=== PATIENT | female | born 1990 | race Caucasian/White ===

== ENCOUNTER → 2018-04-21 16:08 | Outpatient (CLI) | payer OTHER, MEDICAID, SELFPAY ==
[2018-04-21 18:14] LABS: Hematocrit 33.8 % (36-46); Hemoglobin 11.1 g/dL (12.0-16.0)
[2018-04-21 19:03] LABS: GTT (PREG) 1 Hour PP 50gm Dose 77 mg/dL (76-139)
== END ==
PROVIDERS: Visit Provider Obstetrics & Gynecology
DX: Z34.82 Encounter for supervision of other normal pregnancy, second trimester (principal); Z3A.26 26 weeks gestation of pregnancy
CPT/HCPCS: 82950; 85014; 85018

== ENCOUNTER → 2018-06-07 12:36 | Outpatient (CLI) | payer OTHER, MEDICAID, SELFPAY ==
[2018-06-08 14:32] LABS: Strep Grp B PCR NEG for Grp B Strep
== END ==
PROVIDERS: Visit Provider Obstetrics & Gynecology
DX: Z34.83 Encounter for supervision of other normal pregnancy, third trimester (principal)
CPT/HCPCS: 87653

== ENCOUNTER 2018-06-27 19:47 | Outpatient (CLI) | payer OTHER, MEDICAID, SELFPAY ==
[2018-06-27 21:31] LABS: RBC Urine None Seen (0-5/HPF)
[2018-06-27 21:32] LABS: Appearance Urine UA CLEAR; Bilirubin Urine UA NEGATIVE (NEGATIVE); Color Urine UA YELLOW; Glucose Urine UA NEGATIVE (Normal); Ketones Urine UA NEGATIVE (NEGATIVE); Leukocyte Esterase Urine UA 2+ (NEGATIVE); Nitrite Urine UA Negative (Negative); Occult Blood Urine UA NEGATIVE (Negative); Protein Urine UA NEGATIVE (Negative); Urobilinogen Urine UA 0.2 E.U./dL (0.2)
[2018-06-27 21:42] LABS: Bacteria Urine Few (2-10); Squamous Epithelial Cell Urine >30 /HPF; WBC Urine 1-5/HPF (0-5/HPF)
[2018-06-27 21:44] LABS: Culture Indicated Urine Cult Not Indicated
== END 2018-06-27 21:05 | disposition home or self-care (01) ==
LOC: OB 06-28 15:51
PROVIDERS: Visit Provider Family Medicine
DX: Z34.83 Encounter for supervision of other normal pregnancy, third trimester (principal); Z3A.38 38 weeks gestation of pregnancy; R10.9 Unspecified abdominal pain; M54.5 Low back pain
CPT/HCPCS: 59025; 81001; G0378; G0379

== ENCOUNTER 2018-07-04 11:42 | Outpatient (CLI) | payer OTHER, MEDICAID, SELFPAY ==
--- NOTE | 2018-07-07 12:01 | PM.OBTRLD ---
Visit Information Visit Information Date of evaluation: 07/04/18 Primary OB Provider: Lakia Montero Reason for Evaluation: Yes non-stress test non-stress test reason: decreased movement Evaluation Evaluation Baseline heart rate: 145 Variability: Moderate (11-25) monitor accelerations: Present monitor decelerations: Absent Category of Tracing: I
== END 2018-07-04 12:16 | disposition home or self-care (01) ==
LOC: OB 07-08 09:58
PROVIDERS: Visit Provider Obstetrics & Gynecology
DX: Z34.83 Encounter for supervision of other normal pregnancy, third trimester (principal); Z3A.39 39 weeks gestation of pregnancy
CPT/HCPCS: 59025; 84112; G0378; G0379

== ENCOUNTER 2018-07-10 13:27 | Observation (INO) | payer OTHER, MEDICAID, SELFPAY ==
--- NOTE | 2018-07-10 14:45 | PM.OBTRLD ---
Visit Information Visit Information Date of evaluation: 07/10/18 Primary OB Provider: Lakia Montero On-call OB Provider: Cassie Burnette Reason for Evaluation: Yes non-stress test non-stress test reason: other Comments/Additional reasons for admission: Patient concerned about passage of green mucus plug earlier today. No leaking of fluid, bleeding, fevers or painful contractions. + movement. Evaluation Evaluation Baseline heart rate: 130 Variability: Moderate (11-25) monitor accelerations: Present monitor decelerations: Absent Uterine Contraction Intensity: Mild Non-invasive Membranes Rupture Test: negative Diagnosis, Plan/Disposition Final Diagnosis (1) 40 weeks gestation of : Current Visit: Yes Status: Acute Plan/Disposition Plan: 27 year old at 40+3 weeks with passage of green mucus plug today. Reactive NST, SVE unchanged from last clinic check per RN, amnisure negative. Patient will follow up in clinic or return to center if needed.
== END 2018-07-10 14:05 | disposition home or self-care (01) ==
LOC: LABOR 13:31
PROVIDERS: Admitting Provider Family Medicine; Visit Provider Family Medicine
DX: Z34.83 Encounter for supervision of other normal pregnancy, third trimester (principal); Z3A.40 40 weeks gestation of pregnancy
CPT/HCPCS: 59025; 84112; G0378; G0379

== ENCOUNTER 2018-07-12 10:03 | Inpatient (IN) | payer OTHER, MEDICAID, SELFPAY ==
[2018-07-12] MEDS: LACTATED RINGERS 1,000 ML 100 ML IV (10:45)
[2018-07-12] MEDS: OXYTOCIN PREMIX 30 UNIT/500 ML PLAST..BAG IV (10:45)
[2018-07-12 11:00] LABS: Add Manual Diff / Slide Review NO; Basophils Percent Auto 0.6 % (0-2); Eosinophils Percent Auto 2.2 % (2-4); Hematocrit 31.4 % (36-46); Hemoglobin 10.4 g/dL (12.0-16.0); Lymphocytes Percent Auto 17.5 % (25-40); Mean Corpuscular HGB Conc 33.1 % (30-36); Mean Corpuscular Hemoglobin 28.3 PG (26-34); Mean Corpuscular Volume 85.6 fL (80-100); Neutrophils Absolute Auto 9600 /uL (3000-5900); Neutrophils Percent Auto 73.7 % (50-75); Platelet Count 224 X10^3/uL (150-400); Red Blood Cell Count 3.66 X10^6/uL (4.0-5.2); Red Cell Distribution Width 13.1 % (11.6-14.8)
[2018-07-12 11:12] VITALS: BP 124/76
[2018-07-12] MEDS: IBUPROFEN 600 MG TABLET PO (20:06)
[2018-07-13] MEDS: IBUPROFEN 600 MG TABLET PO ×2 (03:49→09:31)
[2018-07-13 05:26] LABS: Hematocrit 28.5 % (36-46); Hemoglobin 9.5 g/dL (12.0-16.0)
--- NOTE | 2018-07-13 07:58 | P.HPPD_ITS ---
History History weight: 7 lb 15 oz Exam - Pediatric Vital Signs BP 124/76 07/12/18 11:12 Objective Labs Result Diagrams: 07/13/18 05:07 Labs: Laboratory Results - last 24 hr 07/12/18 07/12/18 07/13/18 10:35 10:35 05:07 WBC 13.0 H RBC 3.66 L Hgb 10.4 L 9.5 L Hct 31.4 L 28.5 L MCV 85.6 MCH 28.3 MCHC 33.1 RDW 13.1 Plt Count 224 Neut % (Auto) 73.7 Lymph % (Auto) 17.5 L [place] % (Auto) 6.0 Eos % (Auto) 2.2 Baso % (Auto) 0.6 Neut # (Auto) 9600 H Blood Type A Positive Antibody Screen Negative
[2018-07-13] MEDS: DOCUSATE 250 MG CAPSULE PO (09:30)
[2018-07-13] MEDS: PRENATAL VIT,CALC/IRON/FOLIC 1 TABLET 1 TAB PO (09:31)
--- NOTE | 2018-08-04 16:23 | P.HPOB_ITS ---
OB HPI Date/Time Date of admission: 07/12/18 Date Patient Seen: 07/12/18 Time Patient Seen: 10:45 History of Present Condition Chief complaint: labor & delivery : 2 Para: 1 Estimated Date of Delivery: 07/07/18 Estimated Gestational Age (weeks): 40+ 5 Narrative: Mariana Sullivan is a 27 year old female 2 para 1 at 40-,5/7 weeks gestation who presented for induction of labor secondary to postdates Indications Indication for induction OB: post dates History of Present care: good care, initiated at week # (9), number of visits (13) and pounds weight gain (24) Dating criteria: LMP confirmed by 1st trimester US Ultrasounds: normal 1st trimester US and normal mid trimester US Obstetrical complications: none Medical complications: none Preadmission Labs Blood type: A (+) positive -: Antibody screen: negative, GBS status: negative, HBsAG: negative, HIV: negative, HSV 1: unknown, HSV 2: unknown and RPR/VDLR: negative -: Chlamydia screen: not detected and Gonorrhea screen: not detected -: Rubella: immune and Varicella: immune HCT: 33.8 HCAB: negative PAP: Normal Quad screen: Normal 1 hr GTT: 77 Prior (ies) History: 1 spontaneous vaginal delivery at 40 weeks 7 lb 4 oz [facility] Evaluation Evaluation Baseline heart rate: 130 Variability: Moderate (11-25) monitor accelerations: Present monitor decelerations: Absent Category of Tracing: I Cervical dilation (cm): 3 Cervical effacement (%): 80 station: -2 Laboratory results: Laboratory Tests 07/12/18 07/12/18 07/13/18 10:35 10:35 05:07 WBC 13.0 H RBC 3.66 L Hgb 10.4 L 9.5 L Hct 31.4 L 28.5 L MCV 85.6 MCH 28.3 MCHC 33.1 RDW 13.1 Plt Count 224 Neut % (Auto) 73.7 Lymph % (Auto) 17.5 L [place] % (Auto) 6.0 Eos % (Auto) 2.2 Baso % (Auto) 0.6 Neut # (Auto) 9600 H Blood Type A Positive Antibody Screen Negative PFSH Social History Smoking Status: Never smoker Meds Home Medications Medication Instructions Recorded Confirmed Type albuterol sulfate [Ventolin HFA] 2 puff INH QID #1 ea 05/17/17 07/12/18 Rx Allergies Allergy/AdvReac Type Severity Reaction Status Date / Time egg Allergy Intermediate Hives Verified 07/12/18 10:39 seafood Allergy Severe Swelling Uncoded 07/12/18 10:39 of Lip/Tongue/Throat Exam Vital Signs (past 8 hours): Generally: A well-developed, well-nourished white female, no acute distress Lungs: Clear to auscultation bilaterally Cardiovascular: Regular rate and rhythm Fundal height: 39 cm Estimated weight: 7-1/2 lb Extremities: Negative Homans, no edema Objective Labs Result Diagrams: 07/13/18 05:07 Assessment and Plan (1) 40 weeks gestation of : Current visit: No Status: Acute Assessment: 27-year-old 2 para 1 at 40-,5/7 weeks gestation for induction of labor Plan: Pitocin per protocol 2 Epidural as necessary Expected management to spontaneous vaginal delivery
--- NOTE | 2018-08-04 16:23 | PM.OBPRVD ---
Delivery date: 07/12/18 Intrapartal events: None Induction method: per pitocin protocol Delivery augmentation: rupture of membranes Delivery monitor: external FHT and external uterine Route of delivery: Laceration description: Perineal - 1st Degree Delivery repair: vicryl Estimated blood loss (mL): 200 Anesthesia type: Epidural Complications: None Narrative: Patient complete and pushed for 30 min. At 4:54 p.m., a live female infant delivered spontaneously over an intact perineum. No nuchal cord. The remainder of the body delivered without difficulty and was placed on mom's abdomen. The cord was double clamped and cut. Cord bloods were obtained. Pitocin was given in the IV fluids. The placenta delivered intact with a 3 vessel cord at 4:57 p.m.. Estimated blood loss 200 cc. Fundus massaged to firm. Apgars 8 at 1 min and 9 at 5 min. . Epidural analgesia. Mom and infant stable to recovery. Meconium-stained amniotic fluid.
--- NOTE | 2018-08-04 16:25 | PM.OBDS.1 ---
Discharge Providers Date of admission: 07/12/18 10:03 Consults: 07/12/18 19:48 Consult to Electronic Test Technician Routine Comment: Discharge provider: Lakia Montero MD Discharge Date: 07/13/18 Summary Date Patient Seen: 07/13/18 Time Patient Seen: 13:30 Peripartum Data Infant Delivery Method: Natural Vaginal Laceration description: Perineal - 1st Degree Episiotomy description: None Procedures: Spontaneous vaginal delivery Epidural analgesia complications: none Discharge Diagnosis (1) 40 weeks gestation of : Status: Acute (2) Meconium stained amniotic fluid, delivered, current hospitalization: Status: Acute (3) Normal spontaneous vaginal delivery: Status: Acute Status at Discharge Functional status at discharge: independent ambulation Overall status at discharge: patient is progressing back to baseline Time Spent with Patient Total time spent providing and/or coordinating discharge services: Less than 30 minutes Objective Labs Result Diagrams: 07/13/18 05:07 Discharge Plan Discharge Plan Patient Disposition: Home Discharge comment: Call with fever, chills or bleeding vaginally more than a pad in an hour Discharge Med Rec/Prescriptions Prescriptions: No Action albuterol sulfate [Ventolin HFA] 90 MCG/PUFF HFA aerosol inhaler 2 puff INH QID Qty: 1 RF: 0 Follow up/Referrals: Lakia Montero MD [Physician] - 08/24/18 2:00 pm Provider Discharge Instructions Diet: Diet as Tolerated Activity: No intercourse Skin/Wound/Dressing Care Report to your healthcare provider any signs of infection, such as:: chills, fever, increased pain and unusual drainage Visit Report/Discharge Packet Instructions: DI for Labor and Delivery, Vaginal Stand Alone Forms: Discharge: Care Visit Report Forms: Stroke Signs & Symptoms Discharge Data Attending Provider: Lakia Montero Admit Date/Time: 07/12/18 10:03 Discharges patient from system. Discharge Date/Time: 07/13/18 17:35
== END 2018-07-13 17:35 | disposition home or self-care (01) | DRG 560 ==
PROVIDERS: Admitting Provider Obstetrics & Gynecology; Visit Provider Obstetrics & Gynecology
DX: O48.0 Post-term pregnancy (principal); Z3A.40 40 weeks gestation of pregnancy; Z37.0 Single live birth; O77.0 Labor and delivery complicated by meconium in amniotic fluid
CPT/HCPCS: 01967; 36415; 59050; 59409; 85014; 85018; 85025; 86850; 86900; 86901; G0379; J2590

== ENCOUNTER → 2019-01-24 18:46 | Outpatient (CLI) | payer OTHER, MEDICAID, SELFPAY ==
[2019-01-24 19:27] LABS: Influenza A and B by PCR Rapid Negative (Negative)
== END ==
PROVIDERS: Visit Provider Physician Assistant
DX: R68.89 Other general symptoms and signs (principal)
CPT/HCPCS: 87400

== ENCOUNTER 2021-03-30 11:27 | Emergency (ER) | payer OTHER, MEDICAID, SELFPAY ==
[2021-03-30 11:34] VITALS: BP 123/65; PULSE 99; RESP 20; TEMP 36.7; O2SAT 99; BMI 29.9
--- NOTE | 2021-03-30 11:38 | ED.DENTAL ---
HPI - Dental/Oral General Chief complaint: Dental/Oral Stated complaint: TOOTH INFECTION Time Seen by Provider: 03/30/21 11:38 Source: patient and other (walk-in clinic ) Mode of arrival: Ambulatory Limitations: no limitations History of Present Illness HPI Narrative: This is a 30-year-old female states she started having dental pain last week. She saw her dentist who recommended having extraction of the tooth but they had recently had hand surgery and did not have a hand strength so plan was to start amoxicillin and then have patient follow-up once her dentist had recuperated. Patient does have additional options for dentist follow-up with but she was reluctant to see another individual and elected take the antibiotics instead. Patient states she took 2 days of antibiotics and then quit taking them24 hours ago. Since then she has developed increasing pain as well as swelling below the eye and then extending towards the cheek. Patient states her pain extends towards her confucianism, under the eye and over the cheekbone. She denies any pain to the ear. She denies any swelling of her oropharynx, tongue or airway. No changes in voice such as stridor hoarseness. She has not had any nausea. She has not been febrile but has felt under the weather with a foul taste in her mouth, and has been sleeping more than she typically does. She has a history of asthma which she states she rarely uses albuterol for. She denies any other medical issues. She denies exacerbation of her asthma. She has an egg and seafood allergy. She denies any tobacco, she does drink alcohol, denies illicit. Related Data Previous Rx's Medication Instructions Recorded albuterol sulfate [Ventolin HFA] 2 puff INH QID #1 ea 05/17/17 clindamycin HCl 300 mg PO QID #40 cap 03/30/21 Allergies Allergy/AdvReac Type Severity Reaction Status Date / Time egg Allergy Intermediate Hives Verified 01/24/19 19:04 seafood Allergy Severe Swelling Uncoded 01/24/19 19:04 of Lip/Tongue/Throat Review of Systems Review of Systems ROS Unobtainable: All systems reviewed & are unremarkable except as noted in HPI and below Patient History Social History Smoking Status: Never smoker Smoking Status: Never smoker alcohol intake frequency: 3 or more drinks per day Substance Use Type: does not use Exam Narrative Exam Narrative: GEN: well nourished, well appearing female, alert and oriented x 3, patient appears to be in mild distress. HEENT: Atraumatic, pupils are equal round reactive to light, extraocular movements are intact, nares are clear, TMs are clear with no fluid. Patient does have some swelling underneath the right eye as well as the right cheek that is mild with some mild erythema. There is no discrete fluctuance area or mass or induration. Patient does have multiple dental caries and notes that tooth #3 is painful, there is a blackened discoloration of the underside of the tooth, the tooth looks to be intact, there is no discrete area of fluctuance that appears drainable. Throat is clear without any exudates, erythema, tonsillar enlargement or uvular deviation, stridor or hoarseness. HEART: Regular rate and rhythm without murmur, clicks, rubs. LUNGS:Lungs clear to auscultation, no wheezes, rales, crackles, chest moves symmetrically MSCL:full range of motion, normal gait NEURO:CN 2-12 intact, sensation normal Initial Vital Signs Initial Vital Signs: Vital Signs Temperature 98.1 F 03/30/21 11:34 Pulse Rate 99 H 03/30/21 11:34 Respiratory Rate 20 03/30/21 11:34 Blood Pressure 123/65 03/30/21 11:34 Pulse Oximetry 99 03/30/21 11:34 Course Orders Ordered: Discontinued Medications Clindamycin HCl (Clindamycin 150 Mg Capsule) 300 mg PO NOW ONE Stop: 03/30/21 11:48 Last Admin: 03/30/21 11:53 Dose: 300 mg Documented by: CTR.VIPIN Vital Signs Vital signs: Vital Signs - 8 hr 03/30/21 11:34 03/30/21 12:00 Temperature 98.1 F Pulse Rate 99 H 88 Respiratory Rate 20 16 Blood Pressure 123/65 120/61 Pulse Oximetry 99 99 MDM - Dental/Oral MDM Narrative Medical decision making narrative: This is a 30-year-old female had started antibiotics for dental infection. She has follow-up at that she is able to arrange for extraction. She had been started on antibiotics but stopped them and has had worsening symptoms with new swelling and signs of a mild facial cellulitis. Patient's labs and her evaluation do not appear suspicious for sepsis at this time or overwhelming infection. After discussion we discussed resuming her prior antibiotics versus switching them and decision was made to switch to a different antibiotic. Patient's pain has been fairly controlled with Tylenol and ibuprofen and she plans to continue with this. Return precautions were discussed and she is going to contact her dentist on Wednesday to set up follow-up. Discharge Plan Departure Patient Disposition: Home Clinical Impression: Dental infection, Cellulitis of face Instructions: DI for Cellulitis -- Adult Activity Restrictions/Additional Instructions: Follow up with your dentist, call Wednesday for an appointment. Take antibiotics until they are completely gone. According to [facility] in [place] website pharmacy is open 10-6pm today. You may continue Tylenol up to a 1000 mg every 8 hours and or ibuprofen up to 800 mg every 8 hours as needed for pain. You may use cool compresses or ice to the affected area. You may also use warm salt water swish and spit if you find this helpful. Please return for fevers greater 100.4 F, rapidly worsening swelling of your face, tongue, mouth or airway, stridor or hoarseness or changes to her voice, difficulty with breathing, lightheadedness or passing out, rapidly worsening or severe headaches, persistent vomiting or other new or concerning symptoms. Prescriptions: New clindamycin HCl 300 mg capsule 300 mg PO QID Qty: 40 RF: 0 No Action albuterol sulfate [Ventolin HFA] 90 MCG/PUFF HFA aerosol inhaler 2 puff INH QID Qty: 1 RF: 0 Referrals: Miscellaneous,Doctor, [Primary Care Provider] -
[2021-03-30] MEDS: CLINDAMYCIN 150 MG CAPSULE 300 MG PO (11:53)
[2021-03-30 12:00] VITALS: BP 120/61; PULSE 88; RESP 16; O2SAT 99
== END 2021-03-30 12:01 | disposition home or self-care (01) ==
PROVIDERS: Emergency Provider Emergency Medicine
DX: K04.7 Periapical abscess without sinus (principal); L03.211 Cellulitis of face
CPT/HCPCS: 99283

== ENCOUNTER 2021-12-15 13:08 | Emergency (ER) | payer OTHER, MEDICAID, SELFPAY ==
[2021-12-15 13:18] VITALS: PULSE 79; TEMP 36.9
== END 2021-12-15 16:09 | disposition left against medical advice (07) ==
PROVIDERS: Emergency Provider Emergency Medicine
DX: Z53.21 Procedure and treatment not carried out due to patient leaving prior to being seen by health care provider (principal)
CPT/HCPCS: 81003; 81025; 99282

== ENCOUNTER 2022-11-15 12:46 | Emergency (ER) | payer OTHER, MEDICAID, SELFPAY ==
[2022-11-15 12:58] VITALS: BP 130/62; PULSE 80; RESP 18; TEMP 36.6; O2SAT 98; BMI 30.1
--- NOTE | 2022-11-15 13:02 | DI.RAD.S_ITS ---
PROCEDURE: XR HAND RT MIN 3V INDICATIONS: pain bruising, horseplay gone wrong TECHNIQUE: 3 views of the hand(s) acquired. COMPARISON: None. FINDINGS: Bones: No fractures or dislocations. Carpal bones are normally aligned. No suspicious bony lesions. Soft tissues: No suspicious soft tissue calcifications. IMPRESSION: Unremarkable right hand radiographs Approved by: Jori Olson M.D. on 11/15/2022 at 12:59
[2022-11-15 14:55] VITALS: BP 131/76; PULSE 81; RESP 16; O2SAT 100
[2022-11-15] MEDS: ACETAMINOPHEN 325 MG TABLET 975 MG PO (15:04)
[2022-11-15 15:08] VITALS: BP 119/68; PULSE 80; O2SAT 100
--- NOTE | 2022-11-15 17:34 | ED_ITS ---
HPI - Extremity Injury (Upper) <KAYLA Hayden - Last Filed: 11/15/22 18:05> General Chief Complaint: Extremity Injury, Upper Stated Complaint: Right Hand Injury Time Seen by Provider: 11/15/22 14:46 Source: patient Mode of arrival: Ambulatory History of Present Illness HPI narrative: This is a 32-year-old female presents to the emergency department complaining of right hand pain after she was rough-housing with her boyfriend last night, states that she has a contusion to the top of her right hand, denies any numbness, tingling, range of motion difficulty or weakness. She is without sensation changes, denies deformity, is able to wiggle all of her fingers without complaint of pain, denies wrist pain elbow pain or other injury. She is right-hand dominant, she has her 2 daughters with her today. Related Data Previous Rx's Medication Instructions Recorded albuterol sulfate 90 mcg/actuation 2 puff INH QID #1 ea 05/17/17 aerosol inhaler (Ventolin HFA) triamcinolone acetonide 0.1 % 1 applic topical TID PRN eczema 09/08/22 topical ointment #30 grams diclofenac sodium 1 % topical gel 2 g topical QID #100 grams 11/15/22 Allergies Allergy/AdvReac Type Severity Reaction Status Date / Time Fish Containing Products Allergy Severe Swelling Verified 11/15/22 15:03 of Lip/Tongue/Throat shellfish derived Allergy Severe Swelling Verified 11/15/22 15:03 of Lip/Tongue/Throat egg Allergy Intermediate Hives Verified 06/19/22 12:38 Review of Systems <KAYLA Hayden - Last Filed: 11/15/22 18:05> Review of Systems ROS Unobtainable: All systems reviewed & are unremarkable except as noted in HPI and below Patient History <KAYLA Hayden - Last Filed: 11/15/22 18:05> Medical History Dental abscess Dental decay Normal spontaneous vaginal delivery anemia Social History Smoking Status: Never smoker Smoking Status: Never smoker alcohol intake frequency: 3 or more drinks per day Substance Use Type: does not use Exam <KAYLA Hayden - Last Filed: 11/15/22 18:05> Initial Vital Signs Initial Vital Signs: Vital Signs Temperature 98 F 11/15/22 12:58 Pulse Rate 80 11/15/22 12:58 Respiratory Rate 18 11/15/22 12:58 Blood Pressure 130/62 11/15/22 12:58 Pulse Oximetry 98 11/15/22 12:58 Oxygen Delivery Method 11/15/22 12:58 <Noa Miller MD - Last Filed: 11/15/22 18:57> Initial Vital Signs Initial Vital Signs: Vital Signs Temperature 98 F 11/15/22 12:58 Pulse Rate 80 11/15/22 12:58 Respiratory Rate 18 11/15/22 12:58 Blood Pressure 130/62 11/15/22 12:58 Pulse Oximetry 98 11/15/22 12:58 Oxygen Delivery Method 11/15/22 12:58 Course <KAYLA Hayden - Last Filed: 11/15/22 18:05> Orders Ordered: ED Orders 11/15/22 13:02 XR hand RT min 3V Stat Discontinued Medications Acetaminophen (Acetaminophen 325 Mg Tablet) 975 mg PO NOW ONE Stop: 11/15/22 14:56 Last Admin: 11/15/22 15:04 Dose: 975 mg Documented By: SHAWN Ketorolac Tromethamine (Ketorolac 30 Mg/Ml Vial) 15 mg IM NOW ONE Stop: 11/15/22 14:56 Last Admin: 11/15/22 15:03 Dose: Not Given Documented By: SHAWN Vital Signs Vital signs: Vital Signs - 8 hr 11/15/22 12:58 11/15/22 14:55 11/15/22 15:08 Temperature 98 F Pulse Rate 80 81 80 Respiratory Rate 18 16 Blood Pressure 130/62 131/76 119/68 Pulse Oximetry 98 100 100 Oxygen Delivery Method Room Air Room Air Room Air <Noa Miller MD - Last Filed: 11/15/22 18:57> Orders Ordered: ED Orders 11/15/22 13:02 XR hand RT min 3V Stat Discontinued Medications Acetaminophen (Acetaminophen 325 Mg Tablet) 975 mg PO NOW ONE Stop: 11/15/22 14:56 Last Admin: 11/15/22 15:04 Dose: 975 mg Documented By: SHAWN Ketorolac Tromethamine (Ketorolac 30 Mg/Ml Vial) 15 mg IM NOW ONE Stop: 11/15/22 14:56 Last Admin: 11/15/22 15:03 Dose: Not Given Documented By: SHAWN Vital Signs Vital signs: Vital Signs - 8 hr 11/15/22 12:58 11/15/22 14:55 11/15/22 15:08 Temperature 98 F Pulse Rate 80 81 80 Respiratory Rate 18 16 Blood Pressure 130/62 131/76 119/68 Pulse Oximetry 98 100 100 Oxygen Delivery Method Room Air Room Air Room Air MDM - Extremity Injury (Upper) <Ashley Donovan [facility] - Last Filed: 11/15/22 18:05> Imaging Data Extremity x-ray #1: Radiologist's Impression: [address] [address] XRay Report Signed Patient: Mariana Sullivan MR#: [id number] : 1990 Acct:[id number] Age/Sex: 32 / F Date of Service: 11/15/22 Loc: ED Accession Number: [id number] ?? Procedure: XR hand RT min 3V Ordering Provider: Noa Miller MD PROCEDURE:? XR HAND RT MIN 3V ? INDICATIONS:? pain bruising, horseplay gone wrong ? TECHNIQUE:? 3 views of the hand(s) acquired.? ? COMPARISON:? None. ? FINDINGS:? ? Bones:? No fractures or dislocations.? Carpal bones are normally aligned.? No suspicious bony lesions.? ? Soft tissues:? No suspicious soft tissue calcifications.? ? ? IMPRESSION:? Unremarkable right hand radiographs ? ? Approved by: Jori Olson M.D. on 11/15/2022 at 12:59? MDM Narrative Medical decision making narrative: This is a 32-year-old female presents to the emergency department complaining of right hand pain after she was rough-housing with her boyfriend last night, states that she has a contusion to the top of her right hand, denies any numbness, tingling, range of motion difficulty or weakness. Differential diagnoses include, but are not limited to: Metacarpal fracture, contusion hematoma, ligamental or tendon injury. I performed a preliminary independent interpretation of the following imaging studies: xray right hand without obvious fracture Assess patient, she has full range of motion and mobility of right hand, without deficit, cap refill is brisk, no tenderness with axial load through metacarpals. Treated with Toradol, Tylenol, will reassess her pain, awaiting radiologist report of hand x-ray. Ordered Mitch bandage for comfort. Patient's symptoms improved over duration of stay with above-stated therapies. Patient's right hand x-ray is negative for acute fracture, encouraged Tylenol, ibuprofen, ice rest and Mitch bandage, elevation, rest, follow-up with PCP if she has worsening pain or mobility deficit. Her PCP is within [facility], will give contact information for [facility] for follow-up if not improving. MIPS: This encounter doesn't have any diagnosis associated with MIPS criteria. Social determinants of health that may impact treatment or disposition: none Vital Signs: I, the ED provider, reviewed the patient?s vital signs, past medical records and encounters if available, and nursing notes. I have spoken with the patient/family and discussed today?s findings whom verbalize understanding. Counseling was provided regarding the diagnosis and prognosis, and specific details were provided for the plan of care. Questions are addressed and there is agreement with the plan and for follow-up. Patient is appropriate for outpatient management. Portions of this chart have been created with [employer] voice recognition software. Occasional wrong word or sound alike substitutions may have occurred due to the inherent limitations of this software. I, KAYLA Khan, personally performed the services described in the documentation, and it accurately records my words and actions. I collaborated with the ED attending physician for NADINE level 2, 3, and some level 4s as needed Electronically signed by: KAYLA Khan Discharge Plan Departure Patient Disposition: Home Clinical Impression: Hand injury Qualifiers: Encounter type: initial encounter Laterality: right Qualified Code(s): S69.91XA - Unspecified injury of right wrist, hand and finger(s), initial encounter Contusion of hand Qualifiers: Encounter type: initial encounter Laterality: right Qualified Code(s): S60.221A - Contusion of right hand, initial encounter Instructions: DI for Hand Injury, DI for Hand Pain Activity Restrictions/Additional Instructions: *You have been diagnosed with bruising to the top of your right hand without fracture on x-ray. You have good range of motion, sensation and finger strength. If you develop weakness, or another problem, please have this evaluated. Use ibuprofen 600 mg every 6 hours with food and water, with that please take Tylenol 650 mg. Use diclofenac gel topically or other topical agent of your choice, okay to use Mitch bandage for light compression, ice frequently, this should start to heal over the next few days but the bruising may last 1-2 weeks *What to do: *Please continue to take your regular medications as directed. [x ] New medication prescriptions sent to your pharmacy: [ [facility]] [ ] New medication written as a paper prescription [ ] No new medications given *Please follow up with your primary care provider in 2-3 days, call for an appointment. Let them know you were seen in the Emergency Department and that we asked that you be seen for follow-up. We will electronically transmit a record of today's note if your PCP is in our system *If you do not have a primary care provider please contact [phone] to establish care with one of [facility] primary care providers. *Return to Emergency Department if you should have any new, worsening, or concerning symptoms, such as [fever greater than 101F, chills, worsening pain, persistent vomiting or other bothersome symptoms]. Prescriptions: New diclofenac sodium 1 % gel 2 g topical QID Qty: 100 0RF Rx Instructions: apply to hand as needed for pain No Action albuterol sulfate [Ventolin HFA] 90 MCG/PUFF HFA aerosol inhaler 2 puff INH QID Qty: 1 0RF triamcinolone acetonide 0.1 % ointment 1 applic topical TID PRN (Reason: eczema) Qty: 30 2RF Referrals: [facility] [Provider Group] Daniella Demarco MD [Primary Care Provider] - Stand Alone Forms: Patient Portal/API <Noa Miller MD - Last Filed: 11/15/22 18:57> Cosign ED Attending Cosnaimaature Attestation: I was immediately available in the department for consultation throughout this patient's visit. I agree with documentation as above. Noa Miller MD
== END 2022-11-15 15:12 | disposition home or self-care (01) ==
PROVIDERS: Emergency Provider Nurse Practitioner Critical Care Medicine; PCP Family Medicine
DX: S60.221A Contusion of right hand, initial encounter (principal); X58.XXXA Exposure to other specified factors, initial encounter
CPT/HCPCS: 73130; 99283

== ENCOUNTER → 2023-04-02 10:27 | Outpatient (CLI) | payer OTHER, MEDICAID, SELFPAY | PROVIDERS: PCP Family Medicine; Visit Provider Nurse Practitioner Family | DX: J02.9 Acute pharyngitis, unspecified (principal) | CPT/HCPCS: 87880 ==

== ENCOUNTER → 2023-07-06 12:15 | Outpatient (CLI) | payer OTHER, MEDICAID, SELFPAY ==
[2023-07-06 23:49] LABS: Urine N gonorrhoeae NOT DETECTED
[2023-07-06 23:51] LABS: Urine Chlamydia NOT DETECTED
== END ==
PROVIDERS: PCP Family Medicine; Visit Provider Family Medicine
DX: Z30.430 Encounter for insertion of intrauterine contraceptive device (principal)
CPT/HCPCS: 81025; 87491; 87591

== ENCOUNTER 2024-01-03 04:06 | Emergency (ER) | payer OTHER, MEDICAID, SELFPAY ==
[2024-01-03] VITALS (14 sets, daily range): BP systolic 115–159; BP diastolic 60–89; PULSE 65–83; RESP 5–22; TEMP 36.3–36.8; O2SAT 97–100; BMI 28.3
--- NOTE | 2024-01-03 04:37 | DI.RAD.S_ITS ---
PROCEDURE: XR CHEST 1V INDICATIONS: chest pain, shaky TECHNIQUE: One view of the chest was acquired. COMPARISON: None. FINDINGS: Surgical changes and devices: None. Lungs and pleura: Lungs are clear. No pleural effusions or pneumothorax. Mediastinum: Mediastinal contours appear normal. Heart size is normal. Bones and chest wall: No suspicious bony lesions. Overlying soft tissues appear unremarkable. IMPRESSION: No acute cardiopulmonary abnormalities or focal airspace disease. No significant discrepancy with the awake overnight counselor radiology preliminary report. Dictated by: Kris Crespo M.D. on 01/03/2024 at 7:24 Approved by: Kris Crespo M.D. on 01/03/2024 at 7:25
--- NOTE | 2024-01-03 04:55 | ED_ITS ---
HPI - Chest Pain <Grisel Tafoya, DO - Last Filed: 01/05/24 08:39> General Chief Complaint: Chest Pain Stated Complaint: weak, shaky, chest pain Time Seen by Provider: 01/03/24 04:24 Source: patient Mode of arrival: Ambulatory Limitations: no limitations History of Present Illness HPI narrative: 33-year-old female with history intermittent asthma and chronic alcohol use. Patient presents with complaint of left central substernal chest pain that woke her up from sleep at about 2:00 a.m. this morning. Patient states it lasted for about 45 minutes. Has resolved but she still feels funny. Feels weak and shaky. No fevers or chills. No cold cough congestion. No shortness of breath. Has had some nausea but no vomiting. States it is worse when she drinks water she has been drinking regularly since. No abdominal back or flank pain. She has had a little bit of diarrhea recently. No black or bloody stools. No urinary symptoms. No swelling of extremities. Patient states she very rarely uses her inhalers states she does not feel like she needs currently. No other prescription medications. No prior surgeries. No known drug allergies. Smokes 2 cigarettes monthly, drinks 6 alcoholic drinks daily, no illicit drugs. Family history dad of a stroke age 69 denies her cardiac, pulmonary or embolic history. Dr. Demarco is her primary care physician. Related Data Previous Rx's Medication Instructions Recorded albuterol sulfate 90 mcg/actuation 2 puff INH QID #1 ea 05/17/17 aerosol inhaler (Ventolin HFA) triamcinolone acetonide 0.1 % 1 applic topical TID PRN eczema 09/08/22 topical ointment #30 grams diclofenac sodium 1 % topical gel 2 g topical QID #100 grams 11/15/22 amoxicillin 500 mg capsule 500 mg PO BID #20 caps 04/02/23 levonorgestrel 21 mcg/24 hours (8 1 device intrauterine ONCE #1 ea 07/02/23 yrs) 52 mg intrauterine device (Mirena) Allergies Allergy/AdvReac Type Severity Reaction Status Date / Time Fish Containing Products Allergy Severe Swelling Verified 07/06/23 12:16 of Lip/Tongue/Throat shellfish derived Allergy Severe Swelling Verified 07/06/23 12:16 of Lip/Tongue/Throat egg Allergy Intermediate Hives Verified 07/06/23 12:16 Review of Systems <Grisel Tafoya DO - Last Filed: 01/05/24 08:39> Review of Systems ROS Unobtainable: All systems reviewed & are unremarkable except as noted in HPI and below Patient History <Grisel Tafoya DO - Last Filed: 01/05/24 08:39> Medical History Normal spontaneous vaginal delivery Dental decay Dental abscess anemia Social History Smoking Status: Never smoker Smoking Status: Never smoker alcohol intake frequency: 3 or more drinks per day Substance Use Type: does not use Exam <Grisel Tafoya DO - Last Filed: 01/05/24 08:39> Narrative Exam Narrative: GENERAL: Alert and oriented x three, female in mild distress HEENT: Head normocephalic, atraumatic, EOMI, pupils reactive, face symmetric, moist mucous membranes NECK: Supple, full range of motion CARDIOVASCULAR: Regular rate and rhythm without murmurs, rubs or gallops. No reproducible chest pain. No edema bilateral lower upper extremities. 2+ radial pulses. RESPIRATORY: Breath sounds equal bilaterally, no wheezes rales or rhonchi. No tachypnea or accessory muscle use. ABDOMEN: Soft, nontender. Normoactive bowel sounds all 4 quadrants. No guarding or rebound, rigidity, no mass : No CVA tenderness EXTREMITIES: Normal range of motion, no clubbing or edema. Neurovascularly intact NEUROLOGICAL: Cranial nerves II through XII grossly intact. Moving all extremities SKIN: Warm, dry, no petechiae, no rashes or lesions. Initial Vital Signs Initial Vital Signs: Vital Signs Temperature 97.4 F L 01/03/24 04:17 Pulse Rate 83 01/03/24 04:17 Respiratory Rate 16 01/03/24 04:17 Blood Pressure 159/76 H 01/03/24 04:17 Pulse Oximetry 99 01/03/24 04:17 Oxygen Delivery Method Room Air 01/03/24 04:17 <Noa Miller MD - Last Filed: 01/03/24 09:44> Initial Vital Signs Initial Vital Signs: Vital Signs Temperature 97.4 F L 01/03/24 04:17 Pulse Rate 83 01/03/24 04:17 Respiratory Rate 16 01/03/24 04:17 Blood Pressure 159/76 H 01/03/24 04:17 Pulse Oximetry 99 01/03/24 04:17 Oxygen Delivery Method Room Air 01/03/24 04:17 Course <Grisel Tafoya, DO - Last Filed: 01/05/24 08:39> Orders Ordered: ED Orders 01/03/24 04:29 EKG-12 Lead Stat 01/03/24 04:37 Chest [XR chest 1V] Stat 01/03/24 05:30 Complete Blood Count AUTO DIFF Stat Comprehensive Metabolic Panel Stat Lipase Stat Troponin & CK Cardiac Panel Stat 01/03/24 05:36 Urine Microscopic Stat 01/03/24 06:05 Covid-19 + FLU A/B + RSV - PCR Stat 01/03/24 08:45 Trop I [Troponin I] Stat Vital Signs Vital signs: Vital Signs - 8 hr 01/03/24 04:17 01/03/24 04:28 01/03/24 04:30 Temperature 97.4 F L Pulse Rate 83 78 76 Respiratory Rate 16 5 L 8 L Blood Pressure 159/76 H Pulse Oximetry 99 100 100 Oxygen Delivery Method Room Air 01/03/24 04:30 01/03/24 05:00 01/03/24 05:00 Temperature Pulse Rate 80 Respiratory Rate 22 Blood Pressure 134/67 147/89 H Pulse Oximetry 100 Oxygen Delivery Method 01/03/24 05:30 01/03/24 05:30 01/03/24 06:00 Temperature Pulse Rate 75 69 Respiratory Rate 9 L 20 Blood Pressure 122/74 Pulse Oximetry 100 98 Oxygen Delivery Method 01/03/24 06:00 01/03/24 06:30 01/03/24 06:30 Temperature Pulse Rate 77 Respiratory Rate 20 Blood Pressure 123/63 123/65 Pulse Oximetry 99 Oxygen Delivery Method 01/03/24 07:00 01/03/24 07:00 01/03/24 07:30 Temperature Pulse Rate 67 73 Respiratory Rate 18 17 Blood Pressure 116/63 Pulse Oximetry 97 100 Oxygen Delivery Method 01/03/24 07:30 01/03/24 08:00 01/03/24 08:00 Temperature Pulse Rate 68 Respiratory Rate 19 Blood Pressure 132/60 115/61 Pulse Oximetry 99 Oxygen Delivery Method 01/03/24 08:30 01/03/24 08:30 01/03/24 09:00 Temperature Pulse Rate 65 Respiratory Rate 16 Blood Pressure 124/63 120/71 Pulse Oximetry 98 Oxygen Delivery Method 01/03/24 09:00 Temperature Pulse Rate 65 Respiratory Rate 17 Blood Pressure Pulse Oximetry 98 Oxygen Delivery Method <Noa Miller MD - Last Filed: 01/03/24 09:44> Orders Ordered: ED Orders 01/03/24 04:29 EKG-12 Lead Stat 01/03/24 04:37 Chest [XR chest 1V] Stat 01/03/24 05:30 Complete Blood Count AUTO DIFF Stat Comprehensive Metabolic Panel Stat Lipase Stat Troponin & CK Cardiac Panel Stat 01/03/24 05:36 Urine Microscopic Stat 01/03/24 06:05 Covid-19 + FLU A/B + RSV - PCR Stat 01/03/24 08:45 Trop I [Troponin I] Stat Vital Signs Vital signs: Vital Signs - 8 hr 01/03/24 04:17 01/03/24 04:28 01/03/24 04:30 Temperature 97.4 F L Pulse Rate 83 78 76 Respiratory Rate 16 5 L 8 L Blood Pressure 159/76 H Pulse Oximetry 99 100 100 Oxygen Delivery Method Room Air 01/03/24 04:30 01/03/24 05:00 01/03/24 05:00 Temperature Pulse Rate 80 Respiratory Rate 22 Blood Pressure 134/67 147/89 H Pulse Oximetry 100 Oxygen Delivery Method 01/03/24 05:30 01/03/24 05:30 01/03/24 06:00 Temperature Pulse Rate 75 69 Respiratory Rate 9 L 20 Blood Pressure 122/74 Pulse Oximetry 100 98 Oxygen Delivery Method 01/03/24 06:00 01/03/24 06:30 01/03/24 06:30 Temperature Pulse Rate 77 Respiratory Rate 20 Blood Pressure 123/63 123/65 Pulse Oximetry 99 Oxygen Delivery Method 01/03/24 07:00 01/03/24 07:00 01/03/24 07:30 Temperature Pulse Rate 67 73 Respiratory Rate 18 17 Blood Pressure 116/63 Pulse Oximetry 97 100 Oxygen Delivery Method 01/03/24 07:30 01/03/24 08:00 01/03/24 08:00 Temperature Pulse Rate 68 Respiratory Rate 19 Blood Pressure 132/60 115/61 Pulse Oximetry 99 Oxygen Delivery Method 01/03/24 08:30 01/03/24 08:30 01/03/24 09:00 Temperature Pulse Rate 65 Respiratory Rate 16 Blood Pressure 124/63 120/71 Pulse Oximetry 98 Oxygen Delivery Method 01/03/24 09:00 Temperature Pulse Rate 65 Respiratory Rate 17 Blood Pressure Pulse Oximetry 98 Oxygen Delivery Method MDM - Chest Pain <Grisel Tafoya, DO - Last Filed: 01/05/24 08:39> Lab Data 01/03/24 05:30 01/03/24 05:30 Labs: Lab Results 01/03/24 01/03/24 01/03/24 Range/Units 05:30 05:30 05:36 WBC 12.0 H (4.5-11.0) X10^3/uL RBC 4.08 (4.0-5.2) X10^6/uL Hgb 12.8 (12.0-16.0) g/dL Hct 38.0 (36-46) % MCV 93.2 (80-100) fL MCH 31.4 (26-34) PG MCHC 33.7 (30-36) % RDW 13.1 (11.6-14.8) % Plt Count 258 (150-400) X10^3/uL Neut % (Auto) 71.0 (50-75) % Lymph % (Auto) 20.5 L (25-40) % Nicol[place] % (Auto) 6.0 (3-14) % Eos % (Auto) 1.7 L (2-4) % Baso % (Auto) 0.8 (0-2) % Neut # (Auto) 8500 H (4060-5152) /uL Lymph # (Auto) 2500 (7781-4133) /uL [place] # (Auto) 700 (0-900) /uL Eos # (Auto) 200 (0-450) /uL Baso # (Auto) 100 (0-100) /uL Sodium 135 L (137-145) mmol/L Potassium 3.5 (3.4-5.1) mmol/L Chloride 103 (98-107) mmol/L Carbon Dioxide 22 (22-32) mmol/L BUN 11 (7-17) mg/dL Creatinine 0.70 (0.52-1.04) mg/dL Estimated GFR > 60 (>60) mL/min BUN/Creatinine Ratio 15.7 (6-22) Glucose 107 H (70-100) mg/dL Calcium 9.0 (8.4-10.2) mg/dL Total Bilirubin 0.8 (0.2-1.3) mg/dL AST 30 (14-36) IU/L ALT 36 H (<35) IU/L Alkaline Phosphatase 49 (38-126) U/L Total Creatine Kinase 60 (30-135) U/L Troponin I < 0.012 Cancelled (0.01-0.034) ng/mL Total Protein 8.0 (6.3-8.2) g/dL Albumin 4.5 (3.5-5.0) g/dL Globulin 3.5 (1.7-4.1) g/dL Albumin/Globulin Ratio 1.3 (1.0-2.8) Lipase 122 (23-300) U/L Urine RBC 0-1/hpf (0-5/HPF) Urine WBC 0-1/hpf (0-5/HPF) Ur Squamous Epith Cells 5-10 /hpf H (0-5/HPF) Urine Bacteria Occasional (0-1) (None) Ur Culture Indicated? Cult not indicated Vol Urine Centrifuged 10ml (spun) SARS-CoV-2 (PCR) (Negative) Influenza A (RT-PCR) (NEGATIVE) Influenza B (RT-PCR) (NEGATIVE) RSV (PCR) (Negative) 01/03/24 01/03/24 Range/Units 06:05 08:45 WBC (4.5-11.0) X10^3/uL RBC (4.0-5.2) X10^6/uL Hgb (12.0-16.0) g/dL Hct (36-46) % MCV (80-100) fL MCH (26-34) PG MCHC (30-36) % RDW (11.6-14.8) % Plt Count (150-400) X10^3/uL Neut % (Auto) (50-75) % Lymph % (Auto) (25-40) % Nicollet % (Auto) (3-14) % Eos % (Auto) (2-4) % Baso % (Auto) (0-2) % Neut # (Auto) (2599-8279) /uL Lymph # (Auto) (0664-8538) /uL Nicollet # (Auto) (0-900) /uL Eos # (Auto) (0-450) /uL Baso # (Auto) (0-100) /uL Sodium (137-145) mmol/L Potassium (3.4-5.1) mmol/L Chloride (98-107) mmol/L Carbon Dioxide (22-32) mmol/L BUN (7-17) mg/dL Creatinine (0.52-1.04) mg/dL Estimated GFR (>60) mL/min BUN/Creatinine Ratio (6-22) Glucose (70-100) mg/dL Calcium (8.4-10.2) mg/dL Total Bilirubin (0.2-1.3) mg/dL AST (14-36) IU/L ALT (<35) IU/L Alkaline Phosphatase (38-126) U/L Total Creatine Kinase (30-135) U/L Troponin I < 0.012 (0.01-0.034) ng/mL Total Protein (6.3-8.2) g/dL Albumin (3.5-5.0) g/dL Globulin (1.7-4.1) g/dL Albumin/Globulin Ratio (1.0-2.8) Lipase (23-300) U/L Urine RBC (0-5/HPF) Urine WBC (0-5/HPF) Ur Squamous Epith Cells (0-5/HPF) Urine Bacteria (None) Ur Culture Indicated? Vol Urine Centrifuged SARS-CoV-2 (PCR) Negative (Negative) Influenza A (RT-PCR) Flu a negative (NEGATIVE) Influenza B (RT-PCR) Flu b negative (NEGATIVE) RSV (PCR) Negative (Negative) Point of Care Testing Test Results Negative Urine Dip Bedside Urine Glucose Negative Bedside Urine Bilirubin - Negative Bedside Urine Ketone - Negative Urine Specific [place] 1.010 Bedside Urine Occult Blood - Negative Bedside Urine pH 6.0 Bedside Urine Protein - Negative Bedside Urine Urobilinogen - Negative Bedside Urine Nitrite - Negative Bedside Urine Leukocytes ++ 125 Esterase ECG Data Attestation: I personally reviewed and interpreted this ECG as follows: Prior ECG tracings: not available for review Interpretation: Sinus rhythm rate of 78 AR 134 QRS of 90 [address]TC [address] No acute ST changes appreciated. No priors for comparison. MDM Narrative Medical decision making narrative: 33-year-old female presents with complaint of chest pressure/pain that started about 2:00 a.m. in the morning lasts about 45 minutes resolved still feels shaky weak and sort of a little bit of nausea this evening and had diarrhea yesterday. Does drink alcohol up to 6 or more drinks daily. No other known cardiac risk factors. Labs white count of 12, normal hemoglobin, platelets are appropriate. Sodium of 135 normal electrolytes normal renal function glucose of 107, ALT is 36 otherwise normal LFTs with negative troponin and lipase. EKG shows no acute changes. CXR prelim is negative. rad read pending. covid/influenza/rsv swab is negative. Signed out to Dr. Miller while awaiting repeat troponin. <Noa Mliler MD - Last Filed: 01/03/24 09:44> Lab Data Labs: Lab Results 01/03/24 01/03/24 01/03/24 Range/Units 05:30 05:30 05:36 WBC 12.0 H (4.5-11.0) X10^3/uL RBC 4.08 (4.0-5.2) X10^6/uL Hgb 12.8 (12.0-16.0) g/dL Hct 38.0 (36-46) % MCV 93.2 (80-100) fL MCH 31.4 (26-34) PG MCHC 33.7 (30-36) % RDW 13.1 (11.6-14.8) % Plt Count 258 (150-400) X10^3/uL Neut % (Auto) 71.0 (50-75) % Lymph % (Auto) 20.5 L (25-40) % Nicollet % (Auto) 6.0 (3-14) % Eos % (Auto) 1.7 L (2-4) % Baso % (Auto) 0.8 (0-2) % Neut # (Auto) 8500 H (7514-1721) /uL Lymph # (Auto) 2500 (1252-7073) /uL [place] # (Auto) 700 (0-900) /uL Eos # (Auto) 200 (0-450) /uL Baso # (Auto) 100 (0-100) /uL Sodium 135 L (137-145) mmol/L Potassium 3.5 (3.4-5.1) mmol/L Chloride 103 (98-107) mmol/L Carbon Dioxide 22 (22-32) mmol/L BUN 11 (7-17) mg/dL Creatinine 0.70 (0.52-1.04) mg/dL Estimated GFR > 60 (>60) mL/min BUN/Creatinine Ratio 15.7 (6-22) Glucose 107 H (70-100) mg/dL Calcium 9.0 (8.4-10.2) mg/dL Total Bilirubin 0.8 (0.2-1.3) mg/dL AST 30 (14-36) IU/L ALT 36 H (<35) IU/L Alkaline Phosphatase 49 (38-126) U/L Total Creatine Kinase 60 (30-135) U/L Troponin I < 0.012 Cancelled (0.01-0.034) ng/mL Total Protein 8.0 (6.3-8.2) g/dL Albumin 4.5 (3.5-5.0) g/dL Globulin 3.5 (1.7-4.1) g/dL Albumin/Globulin Ratio 1.3 (1.0-2.8) Lipase 122 (23-300) U/L Urine RBC 0-1/hpf (0-5/HPF) Urine WBC 0-1/hpf (0-5/HPF) Ur Squamous Epith Cells 5-10 /hpf H (0-5/HPF) Urine Bacteria Occasional (0-1) (None) Ur Culture Indicated? Cult not indicated Vol Urine Centrifuged 10ml (spun) SARS-CoV-2 (PCR) (Negative) Influenza A (RT-PCR) (NEGATIVE) Influenza B (RT-PCR) (NEGATIVE) RSV (PCR) (Negative) 01/03/24 01/03/24 Range/Units 06:05 08:45 WBC (4.5-11.0) X10^3/uL RBC (4.0-5.2) X10^6/uL Hgb (12.0-16.0) g/dL Hct (36-46) % MCV (80-100) fL MCH (26-34) PG MCHC (30-36) % RDW (11.6-14.8) % Plt Count (150-400) X10^3/uL Neut % (Auto) (50-75) % Lymph % (Auto) (25-40) % Nicollet % (Auto) (3-14) % Eos % (Auto) (2-4) % Baso % (Auto) (0-2) % Neut # (Auto) (8535-0407) /uL Lymph # (Auto) (3261-5737) /uL Nicollet # (Auto) (0-900) /uL Eos # (Auto) (0-450) /uL Baso # (Auto) (0-100) /uL Sodium (137-145) mmol/L Potassium (3.4-5.1) mmol/L Chloride (98-107) mmol/L Carbon Dioxide (22-32) mmol/L BUN (7-17) mg/dL Creatinine (0.52-1.04) mg/dL Estimated GFR (>60) mL/min BUN/Creatinine Ratio (6-22) Glucose (70-100) mg/dL Calcium (8.4-10.2) mg/dL Total Bilirubin (0.2-1.3) mg/dL AST (14-36) IU/L ALT (<35) IU/L Alkaline Phosphatase (38-126) U/L Total Creatine Kinase (30-135) U/L Troponin I < 0.012 (0.01-0.034) ng/mL Total Protein (6.3-8.2) g/dL Albumin (3.5-5.0) g/dL Globulin (1.7-4.1) g/dL Albumin/Globulin Ratio (1.0-2.8) Lipase (23-300) U/L Urine RBC (0-5/HPF) Urine WBC (0-5/HPF) Ur Squamous Epith Cells (0-5/HPF) Urine Bacteria (None) Ur Culture Indicated? Vol Urine Centrifuged SARS-CoV-2 (PCR) Negative (Negative) Influenza A (RT-PCR) Flu a negative (NEGATIVE) Influenza B (RT-PCR) Flu b negative (NEGATIVE) RSV (PCR) Negative (Negative) Point of Care Testing Test Results Negative Urine Dip Bedside Urine Glucose Negative Bedside Urine Bilirubin - Negative Bedside Urine Ketone - Negative Urine Specific [place] 1.010 Bedside Urine Occult Blood - Negative Bedside Urine pH 6.0 Bedside Urine Protein - Negative Bedside Urine Urobilinogen - Negative Bedside Urine Nitrite - Negative Bedside Urine Leukocytes ++ 125 Esterase MDM Narrative Medical decision making narrative: 33-year-old female presents with complaint of chest pressure/pain that started about 2:00 a.m. in the morning lasts about 45 minutes resolved still feels shaky weak and sort of a little bit of nausea this evening and had diarrhea yesterday. Does drink alcohol up to 6 or more drinks daily. No other known cardiac risk factors. Labs white count of 12, normal hemoglobin, platelets are appropriate. Sodium of 135 normal electrolytes normal renal function glucose of 107, ALT is 36 otherwise normal LFTs with negative troponin and lipase. EKG shows no acute changes. CXR prelim is negative. rad read pending. covid/influenza/rsv swab is negative. Signed out to Dr. Miller while awaiting repeat troponin. 940am Dr Miller. Care is established, chart is reviewed, patient is independently evaluated Pain is entirely resolved at this point. Reviewed reassuring lab findings including 1st and 2nd troponin. Discussed other possible etiologies for her pain including reflux, esophagitis, gastric issues. Talked about the role Alcohol comply in irritating stomach lining. If she continues to have pain I did recommend a 14 day course of [id number] omeprazole which she is aware of and feels she can certainly do. At this point there is no evidence of acute GI bleeding, acute coronary syndrome, significant infection or alternate explanation that would require further workup, additional imaging or hospitalization. She is safe for discharge Discharge Plan Departure Patient Disposition: Home Clinical Impression: Chest pain Instructions: DI for Chest Pain Activity Restrictions/Additional Instructions: Follow up for recheck as needed. Your workup does not suggest that you have a heart attack, that you are having any bleeding from your stomach or esophagus, you have any significant infection. I am glad that you are currently pain-free. If you have recurrent symptoms my next recommendation would be a 2 week course of [id number] omeprazole 20 mg once a day. This reduces the acid in your stomach to see if this helps. I would recommend following up with the primary care provider Please return for rapidly worsening symptoms, new chest pain, shortness of breath, passing out, persistent vomiting, new swelling of extremities or other new or concerning changes. Prescriptions: No Action Mirena 21 mcg/24 hours (8 yrs) 52 mg intrauterine device 1 device intrauterine ONCE Qty: 1 0RF amoxicillin 500 mg capsule 500 mg PO BID Qty: 20 0RF albuterol sulfate [Ventolin HFA] 90 MCG/PUFF HFA aerosol inhaler 2 puff INH QID Qty: 1 0RF triamcinolone acetonide 0.1 % ointment 1 applic topical TID PRN (Reason: eczema) Qty: 30 2RF diclofenac sodium 1 % gel 2 g topical QID Qty: 100 0RF Rx Instructions: apply to hand as needed for pain Referrals: Daniella Demarco MD [Primary Care Provider] - Stand Alone Forms: Patient Portal/API
[2024-01-03 05:37] LABS: Add Manual Diff / Slide Review NO; Basophils Absolute Auto 100 /uL (0-100); Basophils Percent Auto 0.8 % (0-2); Eosinophils Absolute Auto 200 /uL (0-450); Eosinophils Percent Auto 1.7 % (2-4); Hemoglobin 12.8 g/dL (12.0-16.0); Lymphocytes Absolute Auto 2500 /uL (1100-4500); Lymphocytes Percent Auto 20.5 % (25-40); Mean Corpuscular HGB Conc 33.7 % (30-36); Mean Corpuscular Hemoglobin 31.4 PG (26-34); Mean Corpuscular Volume 93.2 fL (80-100); Monocytes Absolute Auto 700 /uL (0-900); Neutrophils Absolute Auto 8500 /uL (1500-7000); Platelet Count 258 X10^3/uL (150-400); Red Blood Cell Count 4.08 X10^6/uL (4.0-5.2); Red Cell Distribution Width 13.1 % (11.6-14.8)
[2024-01-03 05:47] LABS: Bacteria Urine Occasional (0-1); Culture Indicated Urine Cult Not Indicated; RBC Urine 0-1/HPF (0-5/HPF); Squamous Epithelial Cell Urine 5-10 /HPF (0-5/HPF); Urine Volume 10mL (spun); WBC Urine 0-1/HPF (0-5/HPF)
[2024-01-03 05:52] LABS: Alanine Aminotransferase 36 IU/L (<35); Albumin 4.5 g/dL (3.5-5.0); Albumin Globulin Ratio 1.3 (1.0-2.8); Alkaline Phosphatase 49 U/L (38-126); Aspartate Aminotransferase 30 IU/L (14-36); BUN Creatinine Ratio 15.7 (6-22); Bilirubin Total 0.8 mg/dL (0.2-1.3); Blood Urea Nitrogen 11 mg/dL (7-17); Carbon Dioxide 22 mmol/L (22-32); Chloride 103 mmol/L (98-107); Creatine Kinase 60 U/L (30-135); Estimated Glomerular Filt Rate > 60 mL/min (>60); Globulin 3.5 g/dL (1.7-4.1); Glucose 107 mg/dL (70-100); HEMOLYSIS < 15 (0-50); Lipase 122 U/L (23-300); Potassium 3.5 mmol/L (3.4-5.1); Sodium 135 mmol/L (137-145)
[2024-01-03 06:03] LABS: Troponin I < 0.012 ng/mL (0.01-0.034)
[2024-01-03 06:52] LABS: Influenza A - CEPHEID Flu A NEGATIVE (NEGATIVE); Influenza B - CEPHEID Flu B NEGATIVE (NEGATIVE); Respiratory Syncytial Virus Negative (Negative)
[2024-01-03 06:53] LABS: COVID-19 CEPHEID 4-PLEX PCR Negative (Negative)
[2024-01-03 09:15] LABS: Troponin I < 0.012 ng/mL (0.01-0.034)
== END 2024-01-03 09:56 | disposition home or self-care (01) ==
PROVIDERS: Emergency Medicine; Emergency Provider Emergency Medicine; PCP Family Medicine
DX: R07.9 Chest pain, unspecified (principal); Z20.822 Contact with and (suspected) exposure to COVID-19
CPT/HCPCS: 0241U; 36415; 71045; 80053; 81003; 81015; 81025; 82550; 83690; 84484; 85025; 93005; 99284

== ENCOUNTER 2024-06-20 11:34 | Emergency (ER) | payer OTHER, MEDICAID, SELFPAY ==
[2024-06-20 11:39] VITALS: BP 136/69; PULSE 73; RESP 18; TEMP 36.7; O2SAT 99; BMI 28.3
--- NOTE | 2024-06-20 12:08 | ED.NECK ---
HPI - Neck Pain/Injury <Monica Menendez PA-C - Last Filed: 06/20/24 14:47> General Chief Complaint: Neck Pain/Injury Stated Complaint: back pain/spine Time Seen by Provider: 06/20/24 11:59 History of Present Illness HPI Narrative: 33-year-old female presents to the ED with 2 days of neck pain. Patient states that she was doing some somersaults on the couch yesterday with her children, after which she started experiencing neck pain. Patient endorses pain with neck movement. No numbness, tingling, weakness. No headache. Related Data Previous Rx's Medication Instructions Recorded albuterol sulfate 90 mcg/actuation 2 puff INH QID #1 ea 05/17/17 aerosol inhaler (Ventolin HFA) triamcinolone acetonide 0.1 % 1 applic topical TID PRN eczema 09/08/22 topical ointment #30 grams diclofenac sodium 1 % topical gel 2 g topical QID #100 grams 11/15/22 amoxicillin 500 mg capsule 500 mg PO BID #20 caps 04/02/23 levonorgestrel 21 mcg/24 hours (8 1 device intrauterine ONCE #1 ea 07/02/23 yrs) 52 mg intrauterine device (Mirena) Allergies Allergy/AdvReac Type Severity Reaction Status Date / Time Fish Containing Products Allergy Severe Swelling Verified 07/06/23 12:16 of Lip/Tongue/Throat shellfish derived Allergy Severe Swelling Verified 07/06/23 12:16 of Lip/Tongue/Throat egg Allergy Intermediate Hives Verified 07/06/23 12:16 Review of Systems <Monica Menendez PA-C - Last Filed: 06/20/24 14:47> Constitutional Constitutional: Denies chills, Denies fatigue, Denies fever(s), Denies frequent falls, Denies lethargy and Denies weakness Eyes Eyes: Denies change in vision, Denies eye discharge, Denies irritation and Denies loss of vision ENT Ears, Nose, Mouth, and Throat: Denies change in voice, Denies dizziness, Reports neck pain, Denies sore throat and Denies throat swelling Cardiovascular Cardiovascular: Denies chest pain, Denies irregular heart rhythm, Denies lightheadedness, Denies palpitations, Denies dyspnea, Denies dyspnea on exertion and Denies orthopnea Respiratory Respiratory: Denies cough, Denies dyspnea, Denies dyspnea on exertion and Denies wheezing Gastrointestinal Gastrointestinal: Denies abdominal pain, Denies change in bowel habits, Denies diarrhea, Denies nausea and Denies vomiting Musculoskeletal Musculoskeletal: Reports neck pain and Denies numbness Integumentary/Breasts Skin/Breast: Denies pruritus, Denies erythema, Denies rash and Denies wounds Neurologic Neurologic: Denies behavioral changes, Denies confusion, Denies dizziness, Denies frequent falls, Denies loss of vision, Denies numbness and Denies weakness Psychiatric Psychiatric: Denies anxiety, Denies behavioral changes, Denies confusion, Denies depression, Denies homicidal ideation and Denies suicidal ideation Endocrine Endocrine: Denies fatigue, Denies flushing and Denies palpitations Hematologic/Lymphatic Hematologic/Lymphatic: Denies easy bruising Allergic/Immunologic Allergic/Immunologic: Denies urticaria, Denies throat swelling and Denies wheezing Patient History <Monica Menendez PA-C - Last Filed: 06/20/24 14:47> Medical History Normal spontaneous vaginal delivery Dental decay Dental abscess anemia Social History Smoking Status: Never smoker Smoking Status: Never smoker alcohol intake frequency: 3 or more drinks per day Substance Use Type: does not use Exam <Monica Menendez PA-C - Last Filed: 06/20/24 14:47> Narrative Exam Narrative: Const General:?cooperative, healthy appearing and comfortable [facility] Head:?normal to inspection Ears:?hearing grossly normal bilaterally Nose:?external nose normal Face and sinus:?normal facial exam and sinuses nontender Mouth:?oral mucosae normal Throat:?posterior oropharynx normal Eyes General:?appearance normal, both eyes and all related structures Neck Neck:?normal visual inspection and no lymphadenopathy noted Resp Effort & Inspection:?normal respiratory effort Auscultation:?clear to auscultation bilaterally Cardio Rate:?regular rate Rhythm:?regular rhythm Musculoskeletal There is some tenderness to palpation of the cervical and thoracic spine. Patient experiencing pain with neck movement. Appears neurovascularly intact. Neuro General:?patient alert, patient awake and patient oriented x3 Initial Vital Signs Initial Vital Signs: Vital Signs Temperature 98.1 F 06/20/24 11:39 Pulse Rate 73 06/20/24 11:39 Respiratory Rate 18 06/20/24 11:39 Blood Pressure 136/69 06/20/24 11:39 Pulse Oximetry 99 06/20/24 11:39 Oxygen Delivery Method Room Air 06/20/24 11:39 <Geneva Chamorro DO - Last Filed: 06/24/24 23:53> Initial Vital Signs Initial Vital Signs: Vital Signs Temperature 98.1 F 06/20/24 11:39 Pulse Rate 73 06/20/24 11:39 Respiratory Rate 18 06/20/24 11:39 Blood Pressure 136/69 06/20/24 11:39 Pulse Oximetry 99 06/20/24 11:39 Oxygen Delivery Method Room Air 06/20/24 11:39 Course <Monica Menendez PA-C - Last Filed: 06/20/24 14:47> Orders Ordered: Discontinued Medications Ketorolac Tromethamine (Ketorolac 30 Mg/Ml Vial) 30 mg IM NOW ONE Stop: 06/20/24 12:17 Last Admin: 06/20/24 12:26 Dose: 30 mg Documented By: VIKTORIA Vital Signs Vital signs: Vital Signs - 8 hr 06/20/24 11:39 06/20/24 14:13 Temperature 98.1 F Pulse Rate 73 64 Respiratory Rate 18 18 Blood Pressure 136/69 128/65 Pulse Oximetry 99 100 Oxygen Delivery Method Room Air Room Air <Geneva Chamorro DO - Last Filed: 06/24/24 23:53> Orders Ordered: Discontinued Medications Ketorolac Tromethamine (Ketorolac 30 Mg/Ml Vial) 30 mg IM NOW ONE Stop: 06/20/24 12:17 Last Admin: 06/20/24 12:26 Dose: 30 mg Documented By: RL Vital Signs Vital signs: Vital Signs - 8 hr 06/20/24 11:39 06/20/24 14:13 Temperature 98.1 F Pulse Rate 73 64 Respiratory Rate 18 18 Blood Pressure 136/69 128/65 Pulse Oximetry 99 100 Oxygen Delivery Method Room Air Room Air MDM - Neck Pain/Injury <Monica Menendez PA-C - Last Filed: 06/20/24 14:47> Lab Data Labs: Point of Care Testing Test Results Negative MDM Narrative Medical decision making narrative: 33-year-old female presents to the ED with 2 days of neck pain. Given mechanism of injury and patient's symptoms, obtained CT cervical spine, CT thoracic spine. CT scans without acute findings. Patient's symptoms most consistent with a musculoskeletal sprain/strain. Patient was given a shot of Toradol in the ED. recommend continuing ibuprofen, Tylenol, lidocaine patches, heat packs. Recommend follow-up with PCP and PT. prescribed muscle relaxants for pain relief. ED return precautions were discussed with patient. Patient verbalized understanding. Medical records reviewed: Yes <Geneva Chamorro DO - Last Filed: 06/24/24 23:53> Lab Data Labs: Point of Care Testing Test Results Negative Discharge Plan Departure Patient Disposition: Home Clinical Impression: Neck pain Instructions: DI for Neck Pain Activity Restrictions/Additional Instructions: You were evaluated in the ED today for neck pain. Your CT scans were normal. It appears that your symptoms are likely due to a musculoskeletal sprain/strain of the neck. You were given a dose of Toradol in the ED today for pain. You may continue to take 600-800 mg of ibuprofen every 8 hours with food. You may also add on 1000 mg of Tylenol every 8 hours. You may apply heat intermittently throughout the day to your neck. You may also apply lidocaine patches for pain relief. You are being prescribed a muscle relaxant for relief. Please follow-up with your PCP for further evaluation and possible physical therapy referral. Return to the ED if you have worsening symptoms, numbness, tingling, weakness. Prescriptions: No Action Mirena 21 mcg/24 hours (8 yrs) 52 mg intrauterine device 1 device intrauterine ONCE Qty: 1 0RF amoxicillin 500 mg capsule 500 mg PO BID Qty: 20 0RF albuterol sulfate [Ventolin HFA] 90 MCG/PUFF HFA aerosol inhaler 2 puff INH QID Qty: 1 0RF triamcinolone acetonide 0.1 % ointment 1 applic topical TID PRN (Reason: eczema) Qty: 30 2RF diclofenac sodium 1 % gel 2 g topical QID Qty: 100 0RF Rx Instructions: apply to hand as needed for pain Referrals: Daniella Demarco MD [Primary Care Provider] - Stand Alone Forms: Patient Portal/API ED Sign-out <Geneva Chamorro DO - Last Filed: 06/24/24 23:53> Cosign ED Attending Cosignature Attestation: I was available for consultation.
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
[2024-06-20] MEDS: KETOROLAC 30 MG/ML VIAL IM (12:26)
[2024-06-20 14:13] VITALS: BP 128/65; PULSE 64; RESP 18; O2SAT 100
== END 2024-06-20 14:13 | disposition home or self-care (01) ==
PROVIDERS: Emergency Provider Student in an Organized Health Care Education/Training Program; PCP Family Medicine
DX: M54.2 Cervicalgia (principal); X50.1XXA Overexertion from prolonged static or awkward postures, initial encounter
CPT/HCPCS: 72125; 72128; 81025; 99284; J1885

== ENCOUNTER 2024-08-07 23:34 | Emergency (ER) | payer OTHER, MEDICAID, SELFPAY ==
[2024-08-07 23:45] VITALS: BP 162/79; PULSE 82; RESP 16; TEMP 36.6; O2SAT 98; BMI 28.3
[2024-08-07 23:53] VITALS: PULSE 89; O2SAT 100
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
[2024-08-08] MEDS: THIAMINE 200 MG in SODIUM CHLORIDE 0.9% 100 ML 408 MG IV (00:04)
[2024-08-08] MEDS: FOLIC ACID 1 MG TABLET PO (00:04)
[2024-08-08] MEDS: KETOROLAC 30 MG/ML VIAL 15 MG IV (00:04)
[2024-08-08] MEDS: SODIUM CHLORIDE 0.9% 1,000 ML 1000 ML IV (00:05)
[2024-08-08 00:06] VITALS: PULSE 99; RESP 17; O2SAT 97
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
[2024-08-08 00:14] LABS: Add Manual Diff / Slide Review NO; Basophils Absolute Auto 100 /uL (0-100); Basophils Percent Auto 0.8 % (0-2); Eosinophils Absolute Auto 400 /uL (0-450); Eosinophils Percent Auto 4.2 % (2-4); Hematocrit 40.8 % (36-46); Hemoglobin 13.7 g/dL (12.0-16.0); Lymphocytes Absolute Auto 1700 /uL (1100-4500); Lymphocytes Percent Auto 15.8 % (25-40); Mean Corpuscular HGB Conc 33.6 % (30-36); Mean Corpuscular Hemoglobin 32.2 PG (26-34); Mean Corpuscular Volume 96.1 fL (80-100); Monocytes Absolute Auto 1000 /uL (0-900); Monocytes Percent Auto 9.2 % (3-14); Neutrophils Absolute Auto 7400 /uL (1500-7000); Platelet Count 258 X10^3/uL (150-400); Red Blood Cell Count 4.25 X10^6/uL (4.0-5.2); Red Cell Distribution Width 13.1 % (11.6-14.8); White Blood Cell Count 10.5 X10^3/uL (4.5-11.0)
[2024-08-08 00:28] LABS: Alanine Aminotransferase 83 IU/L (<35); Albumin 4.6 g/dL (3.5-5.0); Albumin Globulin Ratio 1.3 (1.0-2.8); Alkaline Phosphatase 81 U/L (38-126); Aspartate Aminotransferase 103 IU/L (14-36); Bilirubin Total 1.6 mg/dL (0.2-1.3); Blood Urea Nitrogen 8 mg/dL (7-17); Calcium 9.5 mg/dL (8.4-10.2); Carbon Dioxide 21 mmol/L (22-32); Chloride 103 mmol/L (98-107); Estimated Glomerular Filt Rate > 60 mL/min (>60); Ethanol (ETOH) < 10 mg/dL; Globulin 3.6 g/dL (1.7-4.1); Glucose 117 mg/dL (70-100); HEMOLYSIS < 15 (0-50); Sodium 136 mmol/L (137-145); Total Protein 8.2 g/dL (6.3-8.2)
[2024-08-08 00:30] VITALS: PULSE 99; O2SAT 100
[2024-08-08 00:38] VITALS: BP 134/70; PULSE 93; RESP 17; O2SAT 100
[2024-08-08] MEDS: chlordiazePOXIDE 25 MG CAPSULE 50 MG PO (00:43)
[2024-08-08] MEDS: METOCLOPRAMIDE 10 MG/2 ML INJ IV (00:56)
[2024-08-08 01:00] VITALS: BP 132/63; PULSE 89; RESP 17; O2SAT 98
== END 2024-08-08 01:40 | disposition home or self-care (01) ==
PROVIDERS: Emergency Provider Emergency Medicine; PCP Family Medicine
DX: R07.81 Pleurodynia (principal); F10.939 Alcohol use, unspecified with withdrawal, unspecified; V29.99XA Rider (driver) (passenger) of other motorcycle injured in unspecified traffic accident, initial encounter
CPT/HCPCS: 36415; 71101; 80053; 80320; 85025; 96361; 96365; 96375; 99284; J1885; J2765

== ENCOUNTER 2025-06-15 10:21 | Emergency (ER) | payer SELFPAY ==
[2025-06-15 11:03] VITALS: BP 136/83; PULSE 85; RESP 17; TEMP 36.4; O2SAT 100; BMI 28.3
--- NOTE | 2025-06-15 12:01 | ED_ITS ---
<Statement entered by Jose Angel Simmons, DO - 06/15/25 22:48> Co-Sign Statement: I was available for consultation during this patient's emergency department visit. This chart is signed by myself for administrative purposes only. I did not have direct contact with this patient during this visit. They were seen independently by the APC. HPI - Alcohol General Chief Complaint: Toxicology Problem Stated Complaint: Alcohol withdrawals, shaky Time Seen by Provider: 06/15/25 10:30 Source: patient Mode of arrival: Ambulatory History of Present Illness HPI narrative: Ms. Sullivan is a pleasant 34-year-old female with a past medical history of asthma, alcohol use disorder who presents to the emergency department for right upper quadrant abdominal pain, nausea, vomiting, diarrhea, alcohol withdrawals since early this morning. Patient has gone to detox twice in the past and tried Librium taper once in the past. She relapsed about 2 months ago. She typically drinks 1-2 shots of rum every 2-4 hours to keep withdrawals at [place]. She took her last shot this morning around 5:00 a.m. but shortly after started to develop worsening of her right upper quadrant abdominal pain which has been present for few months, in addition to nausea vomiting and diarrhea. Because of this she has been unable to keep alcohol down and is now starting to experience anxiety and hand tremors. She has not sure if the abdominal pain, nausea, vomiting, diarrhea or because of the alcohol withdrawals or if she is sick with something. She has not interested in inpatient detox at this time but she is interested in a Librium taper. She denies fevers, chills, chest pain, shortness of breath, cough, dysuria, hematuria, concerned for (IUD in place). No history of seizures. Related Data Previous Rx's ?Medication ?Instructions ?Recorded albuterol sulfate 90 mcg/actuation 2 puff INH QID #1 e a 05/17/17 aerosol inhaler (Ventolin HFA) triamcinolone acetonide 0.1 % 1 applic topical TID PRN eczema 09/08/22 topical ointment #30 grams levonorgestrel (Mirena) 1 device intrauterine ONCE # 1 ea 07/02/23 chlordiazepoxide HCl 25 mg capsule See Rx Instructions .Route 06/15/25 .COMPLEX #15 caps chlordiazepoxide HCl 25 mg capsule See Rx Instructions .Route 06/15/25 .COMPLEX #15 caps ondansetron 4 mg disintegrating 4 mg PO Q8H PRN nausea and 06/15/25 tablet vomiting #15 tabs Allergies Allergy/AdvReac Type Severity Reaction Status Date / Time Fish Containing Products Allergy Severe Swelling Verified 06/15/25 11:03 of Lip/Tongue/Throat shellfish derived Allergy Severe Swelling Verified 06/15/25 11:03 of Lip/Tongue/Throat egg Allergy Intermediate Hives Verified 06/15/25 11:03 Review of Systems Review of Systems ROS Unobtainable: All systems reviewed & are unremarkable except as noted in HPI and below Patient History Medical History Redness of eye, left Normal spontaneous vaginal delivery Dental decay Dental abscess anemia Social History Smoking Status: Current some day smoker Smoking Status: Current some day smoker tobacco type: cigarettes alcohol intake frequency: 3 or more drinks per day Alcohol type: hard liquor Exam Narrative Exam Narrative: GENERAL: 34 year old patient appears stated age. Well-developed patient, in no acute distress. HEAD: Atraumatic. Normocephalic. EYES: No scleral icterus. No injection or drainage. NECK: Trachea midline. Cervical ROM intact. CARDIOVASCULAR: Regular rate and rhythm. RESPIRATORY: ?Nonlabored respirations. ?Speaking in clear, full sentences. ?Clear to auscultation. Breath sounds equal bilaterally. No wheezes, rales, or rhonchi. ? GASTROINTESTINAL: Tenderness to palpation of right upper quadrant of abdomen and epigastric region. No rebound or guarding. Abdomen is soft, nondistended, bowel sounds present. EXTREMITIES: No edema or joint tenderness. NEURO: AOx3. ?Clear speech. ?Moves all 4 extremities appropriately. No obvious tremors. SKIN: No rash or erythema of visible areas. Warm, dry. Initial Vital Signs Initial Vital Signs: Vital Signs Temperature 97.5 F L 06/15/25 11:03 Pulse Rate 85 06/15/25 11:03 Respiratory Rate 17 06/15/25 11:03 Blood Pressure 136/83 06/15/25 11:03 Pulse Oximetry 100 06/15/25 11:03 Oxygen Delivery Method Room Air 06/15/25 11:03 Course Orders Ordered: ED Orders 06/15/25 11:09 Consult to [facility] EXEC - Customer Operations Representative Stat 06/15/25 12:00 US abdomen limited Stat 06/15/25 12:25 Complete Blood Count AUTO DIFF Stat Comprehensive Metabolic Panel Stat Ethanol (ETOH) Stat Lipase Stat Magnesium Stat 06/15/25 14:23 Urine Culture Stat Urine Drug Screen, Rapid Stat Urine Microscopic Stat Discontinued Medications Folic Acid (Folic Acid 1 Mg Tablet) 1 mg PO NOW ONE Stop: 06/15/25 12:01 Last Admin: 06/15/25 12:13 Dose: 1 mg Documented By: ALEJANDRO Sodium Chloride (Normal Saline 0.9%) 1,000 mls @ 1,000 mls/hr IV BOLUS ONE Stop: 06/15/25 12:59 Last Infusion: 06/15/25 14:09 Dose: Infused Documented By: Admin: 06/15/25 12:15 Dose: 1,000 mls/hr Documented By: ALEJANDRO Lorazepam (Lorazepam 0.5 Mg Tablet) 1 mg PO NOW ONE Stop: 06/15/25 12:01 Last Admin: 06/15/25 12:14 Dose: 1 mg Documented By: ALEJANDRO Lorazepam (Lorazepam 0.5 Mg Tablet) 1 mg PO NOW ONE Stop: 06/15/25 13:07 Last Admin: 06/15/25 13:25 Dose: 1 mg Documented By: ALEJANDRO Magnesium Oxide (Magnesium Oxide 400 Mg Tablet) 400 mg PO NOW ONE Stop: 06/15/25 13:05 Last Admin: 06/15/25 13:25 Dose: 400 mg Documented By: ALEJANDRO Ondansetron HCl (Ondansetron 4 Mg/2 Ml Inj) 4 mg IV NOW ONE Stop: 06/15/25 12:01 Last Admin: 06/15/25 12:14 Dose: 4 mg Documented By: ALEJANDRO Thiamine HCl (Thiamine 100 Mg Tablet) 100 mg PO NOW ONE Stop: 06/15/25 12:01 Last Admin: 06/15/25 12:14 Dose: 100 mg Documented By: ALEJANDRO Vital Signs Vital signs: Vital Signs - 8 hr 06/15/25 11:03 06/15/25 14:33 06/15/25 16:12 Temperature 97.5 F L 98.6 F 98.8 F Pulse Rate 85 85 84 Respiratory Rate 17 16 16 Blood Pressure 136/83 135/81 135/88 Pulse Oximetry 100 98 99 Oxygen Delivery Method Room Air Room Air Room Air MDM - Alcohol Medical Records Attestation: I reviewed the patient's medical records. Lab Data 06/15/25 12:25 06/15/25 12:25 Labs: Lab Results 06/15/25 06/15/25 Range/Units 12:25 14:23 WBC 6.4 (4.5-11.0) X10^3/uL RBC 4.06 (4.0-5.2) X10^6/uL Hgb 13.5 (12.0-16.0) g/dL Hct 39.5 (36-46) % MCV 97.4 (80-100) fL MCH 33.2 (26-34) PG MCHC 34.1 (30-36) % RDW 14.0 (11.6-14.8) % Plt Count 210 (150-400) X10^3/uL Neut % (Auto) 74.0 (50-75) % Lymph % (Auto) 17.3 L (25-40) % [place] % (Auto) 5.7 (3-14) % Eos % (Auto) 1.7 L (2-4) % Baso % (Auto) 1.3 (0-2) % Neut # (Auto) 4700 (1083-6458) /uL Lymph # (Auto) 1100 (1113-6171) /uL [place] # (Auto) 400 (0-900) /uL Eos # (Auto) 100 (0-450) /uL Baso # (Auto) 100 (0-100) /uL Sodium 137 (137-145) mmol/L Potassium 3.9 (3.4-5.1) mmol/L Chloride 101 (98-107) mmol/L Carbon Dioxide 26 (22-32) mmol/L BUN 6 L (7-17) mg/dL Creatinine 0.63 (0.52-1.04) mg/dL Estimated GFR > 60 (>60) mL/min BUN/Creatinine Ratio 9.5 (6-22) Glucose 112 H (70-99) mg/dL Calcium 9.6 (8.4-10.2) mg/dL Magnesium 1.5 L (1.6-2.3) mg/dL Total Bilirubin 2.1 H (0.2-1.3) mg/dL AST 132 H (14-36) IU/L ALT 98 H (<35) IU/L Alkaline Phosphatase 60 (38-126) U/L Total Protein 8.9 H (6.3-8.2) g/dL Albumin 4.9 (3.5-5.0) g/dL Globulin 4.0 (1.7-4.1) g/dL Albumin/Globulin Ratio 1.2 (1.0-2.8) Lipase 132 (23-300) U/L Urine RBC 1-5/hpf (0-5/HPF) Urine WBC 5-10/hpf H (0-5/HPF) Ur Squamous Epith Cells 10-30 /hpf H (0-5/HPF) Urine Bacteria Few (2-10) H (None) Ur Culture Indicated? Specimen cultured Vol Urine Centrifuged 10ml (spun) U Opiates 300ng/mL cut Negative (Negative) Ur Oxycodone Screen Negative (Negative) Urine Methadone Screen Negative (Negative) Ur Barbiturates Screen Negative (Negative) U Tricyclic Antidepress Negative (Negative) Ur Phencyclidine Scrn Negative (Negative) Ur Amphetamines Screen Negative (Negative) U Methamphetamines Scrn Negative (Negative) Ur MDMA Scrn (Ecstasy) Negative (Negative) U Benzodiazepines Scrn Negative (Negative) Urine Cocaine Screen Negative (Negative) U Marijuana (THC) Screen Negative (Negative) Urine pH Normal (Normal) Urine Specific [place] Normal (Normal) Ethyl Alcohol < 10 (<10) mg/dL Ur Creatinine Normal (Normal) Point of Care Testing Test Results Negative Urine Dip Bedside Urine Glucose Negative Bedside Urine Bilirubin - Negative Bedside Urine Ketone + 15 Urine Specific [place] 1.015 Bedside Urine Occult Blood - Negative Bedside Urine pH 6.0 Bedside Urine Protein - Negative Bedside Urine Urobilinogen - Negative Bedside Urine Nitrite - Negative Bedside Urine Leukocytes ++ 125 Esterase Imaging Data US - abdomen: Radiologist's Impressoin: PROCEDURE: US ABDOMEN LIMITED INDICATIONS: RUQ pain; N/V/D; ETOH use TECHNIQUE: Real-time scanning was performed of the abdominal and retroperitoneal organs, with image documentation. COMPARISON: None. FINDINGS: Liver: Increased liver echogenicity with posterior attenuation, most consistent with moderate to severe steatosis. Enlarged, measuring 22 cm. Gallbladder: No gallstones. No wall thickening. No pericholecystic edema. Negative sonographic Locke's sign. Biliary ducts: Intrahepatic bile ducts are non-dilated. Extrahepatic bile duct caliber measures 3.6 mm. Normal is 6-7 mm or less in diameter, or 10 mm or less post-cholecystectomy. Pancreas: Visualized portions of the pancreas are sonographically normal. Miscellaneous: No free abdominal fluid. IMPRESSION: Severe hepatic steatosis. Normal gallbladder. Dictated by: Bo Peña M.D. on 06/15/2025 at 13:02 Approved by: Bo Peña M.D. on 06/15/2025 at 13:03 [facility] Narrative Medical decision making narrative: 34-year-old female with a past medical history of asthma, alcohol use disorder who presents to the emergency department for right upper quadrant abdominal pain, nausea, vomiting, diarrhea, alcohol withdrawals since early this morning. Differential diagnosis includes but is not limited to pancreatitis, cholecystitis, cholelithiasis, biliary colic, hepatic steatosis, cirrhosis, dehydration, gastroenteritis, colitis, alcohol withdrawal, electrolyte abnormality, UTI,, infectious diarrhea, etc. On exam the patient is in no acute distress, nontoxic-appearing, all vital signs within normal limits. She has not diaphoretic, tachycardic or tremulous but she does feel anxious, nauseous and like her hands are somewhat shaky. She is in voluntarily going through alcohol withdrawal because the nausea and vomiting or preventing her from keeping alcohol down. She does have tenderness to the right upper quadrant. We will obtain abdominal labs, ultrasound, treat with IV fluids Zofran folic acid and thiamine, patient declines IV Valium and would prefer to try p.o. Ativan (we are out of IV Ativan at this facility). She is not interested in inpatient detox. 1300: Updated patient on lab results. Magnesium slightly low 1.5, we will replete with p.o. normal WBC count 6.4, hemoglobin 13.5 hematocrit 39.5. Normal sodium 137, potassium 3.9, BUN 6 creatinine 0.63. Glucose 112. Elevated total bilirubin, AST, ALT. Normal alkaline phosphatase. Normal lipase 132. This time she states that she is still feeling shaky, initial Ativan helped only slightly, we will add on additional Ativan. Ultrasound reveals severe hepatic steatosis, normal gallbladder, normal pancreas. Urinalysis with signs of contamination, patient denies any urinary symptoms, culture sent. Patient feeling better, initial CIWA 8 down to 3 after 2 mg of oral Ativan. We will prescribe same Librium taper that she had 08/08/24. Stressed the importance of a a/outpatient resources in addition to the use of Librium. Discussed risks of Librium. Discussed risks of continuing to drink alcohol with worsening liver function. Encourage patient to go to outpatient detox. Discussed ER return precautions. Patient verbalized understanding of all this information is feeling better and is happy with the plan. She is stable for discharge home, VS WNL, sx improved, tolerating PO. Discharge Plan Departure Patient Disposition: Home Clinical Impression: Alcoholic fatty liver Alcohol withdrawal Qualifiers: Complication of substance-induced condition: uncomplicated Qualified Code(s): F 10.930 - Alcohol use, unspecified with withdrawal, uncomplicated Nausea & vomiting Qualifiers: Vomiting type: unspecified Qualified Code(s): R11.2 - Nausea with vomiting, unspecified Instructions: DI for Drug or Alcohol Withdrawal Activity Restrictions/Additional Instructions: Dear Laurie, Thank you for coming to the emergency department. Today you were evaluated for nausea, vomiting, diarrhea and alcohol withdrawal. As we discussed, because you do not wish to go to inpatient detox at this time, you are being sent a Librium taper which is a medication that can be used to help prevent alcohol withdrawal type symptoms. It is very important to use this medication in conjunction with services such as AA or detox facility. Please return to the emergency department if you develop any new or worsening symptoms, severe withdrawal, persistent vomiting or any other concerns. Please follow up with your primary care doctor within the next 2-3 days for ER follow-up. (If you do not have a PCP you can call [phone]. ?to schedule an appointment with an [facility] Primary Care Provider) IF YOU DEVELOP ANY NEW OR WORSENING SYMPTOMS, RETURN TO THE ER! Please read the attached instructions, they highlight more specific treatments and interventions for you at home. Thank you for letting me participate in your care, Corazon Wright PA-C Prescriptions: New chlordiazepoxide HCl 25 mg capsule See Rx Instructions .ROUTE .COMPLEX Qty: 15 0RF Rx Instructions: Day 1: 50mg every 6 hours. Day 2: 25mg every 6 hours. Day 3: 25mg every 12 hours. Day 4: 25mg at night. ondansetron 4 mg tablet,disintegrating 4 mg PO Q8H PRN (Reason: nausea and vomiting) Qty: 15 0RF chlordiazepoxide HCl 25 mg capsule See Rx Instructions .ROUTE .COMPLEX Qty: 15 0RF Rx Instructions: Day 1: 50mg every 6 hours. Day 2: 25mg every 6 hours. Day 3: 25mg every 12 hours. Day 4: 25mg at night. No Action Mirena 21 mcg/24 hours (8 yrs) 52 mg intrauterine device 1 device intrauterine ONCE Qty: 1 0RF albuterol sulfate [Ventolin HFA] 90 MCG/PUFF HFA aerosol inhaler 2 puff INH QID Qty: 1 0RF triamcinolone acetonide 0.1 % ointment 1 applic topical TID PRN (Reason: eczema) Qty: 30 2RF Referrals: Daniella Demarco MD [Primary Care Provider, Family Practice] Stand Alone Forms: Patient Portal/API
[2025-06-15] MEDS: FOLIC ACID 1 MG TABLET PO (12:13)
[2025-06-15] MEDS: THIAMINE 100 MG TABLET PO (12:14)
[2025-06-15] MEDS: ONDANSETRON 4 MG/2 ML INJ IV (12:14)
[2025-06-15] MEDS: SODIUM CHLORIDE 0.9% 1,000 ML 1000 ML IV (12:15)
--- NOTE | 2025-06-15 12:17 | CM.SWNOTE ---
ED SEAT NAILER Assessment Note Patient is 34 y/o female who presents to the ED via privately vehicle due to concern for N/V/D and ETOH withdrawal symptoms. Patient states her last drink was at 5:30 am when she had a shot of rum. Patient states she has been drinking 1-2 shots of hard alcohol every 2-4 hours. Patient's PCP is Dr. Demarco, patient has [employer] insurance. SEAT NAILER enters triage to meet with patient. Patient presents as A/Ox4. Patient endorses that she cannot afford to take days off work and go to detox. She states she is hoping to detox at home and address symptoms from the ED. Patient states that she has a 6 y/o and 10 y/o at home. Patient endorses that she is engaged in Outpatient SAM/MH services through [facility]. Patient states that she has a therapist and receives medication management as well. Patient endorses hx of two detox stays at [facility], most recently a few months ago. Patient states this is her 3rd relapse. Patient informs ED provider that she would be normally drinking her normal shot but has been unable to drink due to N/V/D and abdominal pain and in turn is experiencing withdrawal symptoms. Patient denies interest in seeking detox today and preference to d/c to home to detox, and states she doesn't work during the weekend. Patient denies interest in AA, states it was not helpful to her. SEAT NAILER provides patient with SAM and detox resources, SEAT NAILER encourages patient to f/u with [facility]. Plan: ED provider to evaluate and treat patient further, patient likely to d/c to home upon medical clearance with outpatient follow up. Yenifer Gold, CONFERENCE RESERVATIONIST
[2025-06-15 12:47] LABS: Add Manual Diff / Slide Review NO; Hematocrit 39.5 % (36-46); Hemoglobin 13.5 g/dL (12.0-16.0); Lymphocytes Absolute Auto 1100 /uL (1100-4500); Mean Corpuscular HGB Conc 34.1 % (30-36); Mean Corpuscular Hemoglobin 33.2 PG (26-34); Mean Corpuscular Volume 97.4 fL (80-100); Platelet Count 210 X10^3/uL (150-400)
[2025-06-15 12:54] LABS: Alanine Aminotransferase 98 IU/L (<35); Albumin 4.9 g/dL (3.5-5.0); Albumin Globulin Ratio 1.2 (1.0-2.8); Alkaline Phosphatase 60 U/L (38-126); Blood Urea Nitrogen 6 mg/dL (7-17); Calcium 9.6 mg/dL (8.4-10.2); Carbon Dioxide 26 mmol/L (22-32); Chloride 101 mmol/L (98-107); Estimated Glomerular Filt Rate > 60 mL/min (>60); Globulin 4.0 g/dL (1.7-4.1); Glucose 112 mg/dL (70-99); HEMOLYSIS 15 (0-50); Magnesium 1.5 mg/dL (1.6-2.3); Potassium 3.9 mmol/L (3.4-5.1); Sodium 137 mmol/L (137-145); Total Protein 8.9 g/dL (6.3-8.2)
[2025-06-15 13:21] LABS: Lipase 132 U/L (23-300)
[2025-06-15 13:24] LABS: Ethanol (ETOH) < 10 mg/dL (<10)
[2025-06-15] MEDS: MAGNESIUM OXIDE 400 MG TABLET PO (13:25)
[2025-06-15 14:33] VITALS: BP 135/81; PULSE 85; RESP 16; TEMP 37; O2SAT 98
[2025-06-15 14:48] LABS: UR Morphine/Opiate cutoff 300 Negative (Negative); Ur Specific Gravity Normal (Normal); Urine MDMA Negative (Negative); Urine Methamphetamines Negative (Negative); Urine Tetrahydrocannabinol Negative (Negative); Urine Tricyclic Antidepressant Negative (Negative)
[2025-06-15 14:51] LABS: Culture Indicated Urine Specimen Cultured
[2025-06-15 16:12] VITALS: BP 135/88; PULSE 84; RESP 16; TEMP 37.1; O2SAT 99
== END 2025-06-15 17:28 | disposition home or self-care (01) ==
PROVIDERS: Emergency Provider Physician Assistant; PCP Family Medicine
DX: F10.930 Alcohol use, unspecified with withdrawal, uncomplicated (principal); R11.2 Nausea with vomiting, unspecified; R19.7 Diarrhea, unspecified; Z97.5 Presence of (intrauterine) contraceptive device; K70.0 Alcoholic fatty liver
CPT/HCPCS: 36415; 76705; 80053; 80305; 80320; 81003; 81015; 81025; 83690; 83735; 85025; 87086; 96361; 96374; 99284; J2405